=== PATIENT | male | born 1995 | race Caucasian/White ===

== ENCOUNTER 2021-03-13 14:41 | Emergency (ER) | payer SELFPAY ==
[~2021-03-13] VITALS: Ht 157.5 cm; Wt 54.4 kg
[2021-03-13 14:48] VITALS: BP 100/53
[2021-03-13] MEDS ORDERED: CLIN300C12 PO (15:21)
--- NOTE | 2021-03-13 15:29 | NUR ---
Patient discharged to home in stable condition. Written and verbal after care instructions given. Patient verbalizes understanding of instruction.
== END 2021-03-13 15:30 | disposition home or self-care (01) ==
LOC: ER 14:41
DX: J02.0 Streptococcal pharyngitis (principal); Z88.6 Allergy status to analgesic agent